=== PATIENT | male | born 1990 | race Caucasian/White ===

== ENCOUNTER 2021-03-15 15:21 | Emergency (ER) | payer SELFPAY ==
[2021-03-15 16:39] VITALS: BMI 21.9
[2021-03-15 22:26] VITALS: BP 120/73; PULSE 80; TEMP 99.1
== END 2021-03-15 21:29 | disposition home or self-care (01) ==
LOC: JER 15:21
DX: B34.9 Viral infection, unspecified (principal)
CPT/HCPCS: 71046-TC-FY; 87804; 87807; 99284-25; C9803; U0003; U0005